=== PATIENT | male | born 1980 | race Caucasian/White ===

== ENCOUNTER 2018-11-06 14:48 | Emergency (ER) | payer BC ==
[~2018-11-06] VITALS: Ht 188 cm; Wt 92.7 kg
[2018-11-06 14:51] VITALS: BP 129/77; PULSE 68; TEMP 97.8
[2018-11-06] MEDS ORDERED: ONE-A-DAY ESSE1 EACH PO (14:56)
[2018-11-06] MEDS ORDERED: VINEGAR PO (14:57)
[2018-11-06] MEDS ORDERED: CAYENNE PO (14:57)
== END 2018-11-06 15:44 | disposition home or self-care (01) ==
LOC: COL.ER 14:48
DX: S93.401A Sprain of unspecified ligament of right ankle, initial encounter (principal); F17.220 Nicotine dependence, chewing tobacco, uncomplicated; X50.1XXA Overexertion from prolonged static or awkward postures, initial encounter; Y92.009 Unspecified place in unspecified non-institutional (private) residence as the place of occurrence of the external cause

== ENCOUNTER 2022-07-09 18:35 | Emergency (ER) | payer OTHER ==
[~2022-07-09] VITALS: Ht 188 cm; Wt 95.5 kg
[~2022-07-09 18:35] MED LIST: CAYENNE PO; ONE-A-DAY ESSE1 EACH PO; VINEGAR PO
[2022-07-09 18:43] VITALS: TEMP 98.6
[2022-07-09 19:36] LABS: BASO % 0.4 % (0.0-2.0); EOS # 0.1 K/mm3 (0.0-0.7); EOS % 1.8 % (0.0-4.0); GRAN # 2.2 K/mm3 (1.4-6.5); HEMATOCRIT 41.6 % (42.0-52.0); HEMOGLOBIN 14.1 g/dl (13.5-18.0); LYMPH # 1.8 K/mm3 (1.2-3.4); LYMPH % 40.5 % (20.0-51.0); MEAN CELL VOLUME 86 fl (80.0-100.0); MEAN CORPUSCULAR HEMOGLOBIN 29 pg (27-31); MEAN CORPUSCULAR HGB CONC 34 g/dl (33.0-37.0); MEAN PLATELET VOLUME 9.9 fl (7.4-10.4); MONO # 0.4 K/mm3 (0.1-0.6); MONO % 9.1 % (1.7-9.3); PLATELET COUNT 226 K/mm3 (130-400); RED BLOOD COUNT 4.85 M/mm3 (4.20-5.60)
[2022-07-09 19:47] LABS: COLLECTION METHOD CLEAN CATCH
[2022-07-09 19:53] LABS: ALBUMIN 4.5 gm/dL (3.5-5.0); BILIRUBIN,TOTAL 0.9 mg/dL (0.2-1.2); CALCIUM 9.5 mg/dL (8.4-10.2); CREATININE, serum 1.03 mg/dL (0.72-1.25); POTASSIUM 4.1 mmol/L (3.5-4.5); TOTAL PROTEIN 7.4 gm/dL (6.2-8.1)
[2022-07-09 19:55] LABS: SQUAMOUS EPITHELIAL 0-2 /hpf (0-10); URINE APPEARANCE Clear (CLEAR/HAZY); URINE BACTERIA None Seen /hpf (NONE SEEN); URINE BLOOD Negative (NEGATIVE); URINE COLOR Yellow (YELLOW); URINE GLUCOSE Negative (NEGATIVE); URINE KETONE Negative (NEGATIVE); URINE NITRATE Negative (NEGATIVE); URINE PROTEIN(semi-quant) Negative (NEGATIVE); URINE RBC 0-2 /hpf (0-2); URINE UROBILINOGEN 0.2 (NEGATIVE)
[2022-07-09 20:16] VITALS: BP 140/78; PULSE 69
[2022-07-09 20:22] LABS: HIV 1/2 Antibodies Non-Reactive; HIV-1p24 Antigen Non-Reactive
[2022-07-10 18:08] LABS: HEPATITIS B SURFACE ANTIBODY 106.7 (()); HEPATITIS B SURFACE ANTIGEN Negative (Negative); HEPATITIS C VIRUS ANTIBODY Negative (Negative)
== END 2022-07-09 20:16 | disposition home or self-care (01) ==
LOC: COL.ER 18:35
PROVIDERS: Nurse Practitioner
DX: S61.031A Puncture wound without foreign body of right thumb without damage to nail, initial encounter (principal); Z77.21 Contact with and (suspected) exposure to potentially hazardous body fluids; Z23 Encounter for immunization; W46.0XXA Contact with hypodermic needle, initial encounter; Y92.59 Other trade areas as the place of occurrence of the external cause; Y99.0 Civilian activity done for income or pay
CPT/HCPCS: J1571